=== PATIENT | male | born 1995 | race Caucasian/White ===

== ENCOUNTER 2024-03-21 12:39 | Emergency (ER) | payer MEDICAID, OTHER ==
[~2024-03-21] VITALS: Ht 175.3 cm; Wt 99.8 kg
[2024-03-21] MEDS ORDERED: LIDOCAINE HCL 2% 20 ML VIAL ONE (13:01)
[2024-03-21] MEDS: LIDOCAINE HCL 2% 20 ML VIAL IJ ONE (13:20)
[2024-03-21] MEDS ORDERED: NEOMY/BACITRA/POLYMYXIN B OINT UD PACKET TP ONE (13:35)
[2024-03-21 13:57] VITALS: BP 127/80; TEMP 98; O2SAT 99
== END 2024-03-21 13:57 | disposition home or self-care (01) ==
LOC: ER 12:39
DX: S61.411A Laceration without foreign body of right hand, initial encounter (principal); W26.8XXA Contact with other sharp object(s), not elsewhere classified, initial encounter; Y93.89 Activity, other specified; Y92.89 Other specified places as the place of occurrence of the external cause; Y99.8 Other external cause status
CPT/HCPCS: 12002; 99282; J3490; A4606; A4663